=== PATIENT | male | born 1960 | race African-American/Black ===

== ENCOUNTER 2016-07-03 19:34 | Emergency (ER) | payer MEDICAID, OTHER ==
[~2016-07-03] VITALS: Ht 175.3 cm; Wt 61.4 kg
[~2016-07-03 19:34] MED LIST: ALBU18HF2 IH; AMLO5TAB4 PO; ASPI-1035 PO; FOLI-43 PO; INSLAN SQ; INSU100C3 SQ; KEPP500 PO; LOSA25TA12 PO; MULT-1146 PO; NAPR-679 PO; OLAN5TAB3 PO; TEMA30CA PO; THIA100T13 PO
[2016-07-04] MEDS ORDERED: HYDROCODONE/ACETAMINOPHEN 5/325MG TABLET PO ONE (00:15)
[2016-07-04] MEDS ORDERED: ONDANSETRON 4MG ODT PO ONE (00:15)
[2016-07-04 01:30] VITALS: BP 125/66
== END 2016-07-04 02:15 | disposition home or self-care (01) ==
LOC: ER 21:10
DX: M54.2 Cervicalgia (principal); I10 Essential (primary) hypertension; E11.8 Type 2 diabetes mellitus with unspecified complications; Z79.4 Long term (current) use of insulin; Z79.899 Other long term (current) drug therapy; Z79.82 Long term (current) use of aspirin; F17.200 Nicotine dependence, unspecified, uncomplicated; F12.10 Cannabis abuse, uncomplicated; R51 Headache; M54.9 Dorsalgia, unspecified
CPT/HCPCS: 70450; 72070; 72100; 72125; 99284; Q0162